=== PATIENT | male | born 2000 | race African-American/Black ===

== ENCOUNTER 2023-02-03 23:50 | Emergency (ER) | payer SELFPAY ==
[2023-02-04] MEDS ORDERED: Ibuprofen 800 MG TAB ONE ×2 (00:07→00:10)
== END 2023-02-04 00:34 | disposition home or self-care (01) ==
LOC: MADERS 23:50
DX: J02.8 Acute pharyngitis due to other specified organisms (principal); R03.0 Elevated blood-pressure reading, without diagnosis of hypertension
CPT/HCPCS: 87081; 87430; 99283

== ENCOUNTER 2024-10-31 16:56 | Emergency (ER) | payer SELFPAY ==
[2024-10-31 17:44] LABS: #Basophils 0.1 thou/uL (0.0-0.2); #Eosinophils 0.1 thou/uL (0.0-0.7); #Lymphocytes 1.9 thou/uL (1.20-3.40); #Monocytes 0.6 thou/uL (0.11-0.59); #Neutrophils 6.1 thou/uL (1.40-6.50); %Basophils 0.6 % (0.0-1.0); %Eosinophils 0.7 % (0.0-10.0); %Lymphocytes 21.9 % (21.0-51.0); %Monocytes 7.2 % (0.0-10.0); %Neutrophils 69.6 % (42.0-75.0); Hematocrit 45.8 % (42.0-52.0); Hemoglobin 14.5 g/dL (14.0-18.0); Mean Corpuscular Hemoglobin 27.3 pg (27.0-31.0); Mean Corpuscular Volume 86.5 fl (78.0-98.0); Platelet Count 458 10x3/uL (130-400); Red Blood Cell (RBC) Count 5.30 mill/uL (4.70-6.10); White Blood Cell (WBC) Count 8.7 10x3/uL (4.8-10.8)
[2024-10-31 17:53] LABS: INR-International Normal Ratio 1.0; Prothrombin Time 13.0 sec (12.0-14.7)
[2024-10-31 17:54] LABS: PTT 33.9 sec (22.9-36.1)
[2024-10-31 18:02] LABS: ALT (SGPT) 29 U/L (Less than 45); AST (SGOT) 34 U/L (11-34); Albumin 4.2 g/dL (3.1-4.5); Alkaline Phosphatase 72 U/L (40-110); Anion Gap 17 mmol/L (10-20); BUN (Urea Nitrogen) 10 mg/dL (8.9-20.6); Bilirubin, Total 0.5 mg/dL (0.3-1.2); Calc. Creatinine Clearance 0 mL/min (70-130); Calcium 9.7 mg/dL (7.8-10.44); Carbon Dioxide 24 mmol/L (22-29); Chloride 103 mmol/L (98-107); Globulin 3.8 g/dL (2.4-3.5); Glucose 107 mg/dL (70-105); Potassium 4.3 mmol/L (3.5-5.1); Sodium 140 mmol/L (136-145)
[2024-10-31] MEDS ORDERED: cefTRIAXone (ROCEPHIN) 1 GM VIAL ONE (18:16)
== END 2024-10-31 18:45 | disposition home or self-care (01) ==
LOC: MADERS 16:56
DX: M96.830 Postprocedural hemorrhage of a musculoskeletal structure following a musculoskeletal system procedure (principal); G89.18 Other acute postprocedural pain
CPT/HCPCS: 29515; 36415; 80053; 85025; 85610; 85730; 96374; J0696